=== PATIENT | female | born 2000 ===

== ENCOUNTER 2023-11-24 11:07 | Emergency (ER) | payer SELFPAY ==
[2023-11-24 11:11] VITALS: BP 113/66; PULSE 91; RESP 18; TEMP 36.3; O2SAT 100
--- NOTE | 2023-11-24 14:30 | PC.NURSE ---
1400 - RN to pt room for assessment. Pt not in room or in ER department
--- NOTE | 2023-11-24 14:30 | PC.NURSE ---
RN checked pt room, waiting room pt not in department. Dr. Paez notified.
== END 2023-11-24 15:05 | disposition left against medical advice (07) ==
LOC: ANHED 14:45
PROVIDERS: Emergency Provider Emergency Medicine
DX: Z53.21 Procedure and treatment not carried out due to patient leaving prior to being seen by health care provider (principal)
CPT/HCPCS: 99199